=== PATIENT | female | born 1995 | race Caucasian/White ===

== ENCOUNTER → 2019-02-12 | Outpatient (CLI) | payer OTHER ==
[2019-02-12 17:08] LABS: BASO % 0.3 % (0.0-1.0); EOS # 0.1 10^3/uL (0.0-0.5); EOS % 1.3 % (0.0-3.0); HEMATOCRIT 42.1 % (36.0-47.0); HEMOGLOBIN 14.2 g/dl (12.0-15.5); LYMPH # 1.5 10^3/uL (1.5-5.0); LYMPH % 14.6 % (24.0-44.0); MEAN CORPUSCULAR HEMOGLOBIN 31.1 pg (27.0-33.0); MEAN CORPUSCULAR HGB CONC 33.7 g/dl (32.0-36.5); MEAN CORPUSCULAR VOLUME 92.1 fl (80.0-96.0); MONO # 0.7 10^3/uL (0.0-0.8); MONO % 6.9 % (0.0-5.0); NEUTROPHILS # 7.6 10^3/uL (1.5-8.5); NEUTROPHILS % 76.6 % (36.0-66.0); PLATELET COUNT, AUTOMATED 250 10^3/uL (150-450); RED BLOOD COUNT 4.57 10^6/uL (4.00-5.40)
[2019-02-12 18:23] LABS: GC DNA AMPLIFICATION NEGATIVE (NEGATIVE)
[2019-02-13 06:20] LABS: CHLAMYDIA DNA AMPLIFICATION NEGATIVE (NEGATIVE); WHITE BLOOD COUNT 9.9 10^3/uL (4.0-10.0)
[2019-02-13 10:19] LABS: HIV 1&2 SCREEN CENTAUR NEGATIVE (NEGATIVE); RUBELLA IgG QUALITATIVE IMMUNE (IMMUNE)
== END ==
LOC: M LRY 14:11
PROVIDERS: ATTEND Advanced Practice Midwife
DX: Z34.00 Encounter for supervision of normal first pregnancy, unspecified trimester (principal); Z3A.00 Weeks of gestation of pregnancy not specified

== ENCOUNTER → 2019-03-01 | Outpatient (CLI) | payer OTHER | LOC: M SMT 13:17 | PROVIDERS: ATTEND Advanced Practice Midwife | DX: Z34.81 Encounter for supervision of other normal pregnancy, first trimester (principal); Z3A.00 Weeks of gestation of pregnancy not specified ==

== ENCOUNTER → 2019-03-19 | Outpatient (CLI) | payer OTHER ==
[2019-03-19 18:01] LABS: APPEARANCE, URINE CLEAR (CLEAR); BACTERIA, URINE AUTO 1+ (NEGATIVE); BILIRUBIN, URINE AUTO NEGATIVE (NEGATIVE); BLOOD, URINE BLOOD NEGATIVE (NEGATIVE); COLOR, URINE STRAW (YELLOW); GLUCOSE, URINE (UA) AUTO NEGATIVE (NEGATIVE); KETONE, URINE AUTO NEGATIVE (NEGATIVE); LEUKOCYTE ESTERASE, URINE AUTO NEGATIVE (NEGATIVE); MUCUS, URINE SMALL (NEGATIVE); NITRITE, URINE AUTO NEGATIVE (NEGATIVE); PROTEIN, URINE AUTO NEGATIVE (NEGATIVE); RBC, URINE AUTO 0 /HPF (0-3); SPECIFIC GRAVITY URINE AUTO 1.003 (1.002-1.035); SQUAMOUS EPITHELIAL CELL UR AU 1 /HPF (0-6); UROBILINOGEN, URINE AUTO 0.2 mg/dL (0.0-2.0); WBC, URINE AUTO 2 /HPF (0-3)
== END ==
LOC: M PLALAB 13:44
PROVIDERS: ATTEND Obstetrics & Gynecology
DX: R10.2 Pelvic and perineal pain (principal)

== ENCOUNTER → 2019-03-19 | Outpatient (REF) | payer OTHER | LOC: M PLALAB 13:42 | PROVIDERS: ATTEND Obstetrics & Gynecology | DX: Z53.9 Procedure and treatment not carried out, unspecified reason (principal) ==

== ENCOUNTER → 2019-04-24 | Outpatient (CLI) | payer OTHER ==
--- NOTE | 2019-04-25 11:25 | REP ---
Clinical: Anatomical evaluation. Comparison: None . Findings: Examination demonstrates a single live intrauterine in cephalic presentation. motion is identified by technologist. Placenta is noted anterior and grade I without evidence for placenta previa or abruption. Amniotic fluid volume is normal. Cervix measures 3.5 cm in length and appears closed. No evidence for nuchal cord. Gestational age by current measurements 20.6 weeks with AKOSUA 09/07/2019 . FHR equals 144 beats per minute. BPD 4.7 cm 20.2 weeks HC 18.2 cm 20.6 weeks AC 16.7 cm 21.7 weeks FL 3.5 cm 21.0 weeks HL 3.3 cm 21.1 weeks HC/AC ratio 1.09 Estimated weight 412 grams ( 70th percentile). Anatomical assessment demonstrates normal structures including cranium, choroid plexus, cavum, cerebellum/posterior fossa, facial features, lungs, four-chamber heart/ventricular outflow tracts, diaphragm, stomach, cord insertion/three-vessel cord, kidneys/bladder, spine, and extremities. Impression: Single live intrauterine in cephalic presentation demonstrating appropriate estimated weight. Anatomical assessment is complete and normal.
--- NOTE | 2019-04-25 11:26 | REP ---
Clinical: Cholelithiasis. Technique: Real time swain scale ultrasound examination using curved array transducer. Findings: Liver and pancreas are normal in contour, size, echogenicity without focal hepatic or pancreatic lesion identified. Gallbladder demonstrates small amount of layering sludge without wall thickening or pericholecystic fluid. No biliary ductal dilatation is appreciated and the common bile duct measures 2.8 mm diameter. The right kidney is normal in reniform shape without hydronephrosis and measures 10.1 x 4.5 x 4.3 cm. Abdominal aorta is normal. Impression: Minimal layering sludge in the gallbladder.
== END ==
LOC: M WHC 10:18
PROVIDERS: ATTEND Obstetrics & Gynecology
DX: Z36.3 Encounter for antenatal screening for malformations (principal); O26.892 Other specified pregnancy related conditions, second trimester; R10.13 Epigastric pain; Z3A.20 20 weeks gestation of pregnancy

== ENCOUNTER → 2019-04-24 | Outpatient (CLI) | payer OTHER ==
[2019-04-24 17:29] LABS: ALBUMIN 3.5 GM/DL (3.2-5.2); ALT/SGPT 17 U/L (12-78); AMYLASE 59 U/L (25-115); BILIRUBIN,TOTAL 0.5 MG/DL (0.2-1.0); BLOOD UREA NITROGEN 7 MG/DL (7-18); CALCIUM LEVEL 8.8 MG/DL (8.5-10.1); CARBON DIOXIDE LEVEL 23 MEQ/L (21-32); CHLORIDE LEVEL 105 MEQ/L (98-107); CREATININE FOR GFR 0.68 MG/DL (0.55-1.30); GLOMERULAR FILTRATION RATE > 60.0 (>60); GLUCOSE, FASTING 65 MG/DL (70-100); LIPASE 125 U/L (73-393); POTASSIUM SERUM 4.1 MEQ/L (3.5-5.1); SODIUM LEVEL 138 MEQ/L (136-145); TOTAL PROTEIN 7.1 GM/DL (6.4-8.2)
[2019-04-24 17:35] LABS: HEMATOCRIT 40.4 % (36.0-47.0); HEMOGLOBIN 13.1 g/dl (12.0-15.5); MEAN CORPUSCULAR HEMOGLOBIN 31.1 pg (27.0-33.0); MEAN CORPUSCULAR HGB CONC 32.4 g/dl (32.0-36.5); PLATELET COUNT, AUTOMATED 250 10^3/uL (150-450); RED BLOOD COUNT 4.21 10^6/uL (4.00-5.40); WHITE BLOOD COUNT 10.2 10^3/uL (4.0-10.0)
== END ==
LOC: M PLALAB 12:26
PROVIDERS: ATTEND Obstetrics & Gynecology
DX: R10.13 Epigastric pain (principal)

== ENCOUNTER → 2019-06-07 | Outpatient (CLI) | payer OTHER ==
[2019-06-07 15:59] LABS: HEMATOCRIT 36.6 % (36.0-47.0); HEMOGLOBIN 12.4 g/dl (12.0-15.5); MEAN CORPUSCULAR HGB CONC 33.9 g/dl (32.0-36.5); MEAN CORPUSCULAR VOLUME 94.6 fl (80.0-96.0); PLATELET COUNT, AUTOMATED 250 10^3/uL (150-450); RED BLOOD COUNT 3.87 10^6/uL (4.00-5.40); WHITE BLOOD COUNT 9.6 10^3/uL (4.0-10.0)
== END ==
LOC: M PLALAB 09:12
PROVIDERS: ATTEND Advanced Practice Midwife
DX: R19.8 Other specified symptoms and signs involving the digestive system and abdomen (principal)
CPT/HCPCS: 36415; 82950; 85027; 86850; 86900; 86901; J2790

== ENCOUNTER → 2019-08-16 | Outpatient (REF) | payer OTHER | LOC: M SFHCWAGY 16:23 | PROVIDERS: ATTEND Advanced Practice Midwife | DX: Z34.03 Encounter for supervision of normal first pregnancy, third trimester (principal) ==

== ENCOUNTER 2019-09-05 18:28 | Inpatient (IN) | payer OTHER ==
[~2019-09-05] VITALS: Ht 175.3 cm; Wt 84.5 kg
[2019-09-05] VITALS (19 sets, daily range): BP systolic 111–141; BP diastolic 57–85
[2019-09-05] MEDS ORDERED: PRENTAB9 PO (18:40)
[2019-09-05] MEDS ORDERED: LR 1,000 ML IV SCH (19:25)
[2019-09-05] MEDS ORDERED: LACTATED RINGER'S 1000 ML IV STA (19:25)
[2019-09-05 19:48] LABS: HEMATOCRIT 36.1 % (36.0-47.0); HEMOGLOBIN 12.6 g/dl (12.0-15.5); MEAN CORPUSCULAR HEMOGLOBIN 30.6 pg (27.0-33.0); MEAN CORPUSCULAR HGB CONC 34.9 g/dl (32.0-36.5); MEAN CORPUSCULAR VOLUME 87.6 fl (80.0-96.0); PLATELET COUNT, AUTOMATED 227 10^3/uL (150-450); RED BLOOD COUNT 4.12 10^6/uL (4.00-5.40)
[2019-09-05] MEDS ORDERED: FENTANYL 2MCG/ML ROPIVACAINE 0.2% IN 0.9% NACL 100ML IVBAG As Ordered ONE (19:55)
[2019-09-05] MEDS ORDERED: EPIDURAL COMMENT XX SCH (21:00)
[2019-09-05] MEDS ORDERED: LACTATED RINGER'S 1000 ML IV PRN (21:00)
[2019-09-05] MEDS ORDERED: ONDANSETRON 4MG/2ML VIAL IV PRN (21:00)
[2019-09-05] MEDS ORDERED: diphenhydrAMINE 50MG/ML VIAL (J1200) IV PRN (21:00)
[2019-09-05] MEDS ORDERED: REFRIGERATOR IV KEYS XX PRN (21:00)
[2019-09-05] MEDS ORDERED: FENTANYL/ROPIVACAINE/NACL BAG 100 ML EPIDURAL SCH (21:00)
[2019-09-05] MEDS ORDERED: ePHEDrine SULFATE 25 MG/5 ML(5MG/ML) SYRINGE IV PRN (21:00)
[2019-09-05] MEDS ORDERED: NALOXONE INJ 0.4MG/1ML VIAL (J2310 PER 1MG) IV PRN (21:00)
[2019-09-05] MEDS ORDERED: EPIDURAL/PCA KEYS XX PRN (21:00)
[2019-09-06] VITALS (12 sets, daily range): BP systolic 107–150; BP diastolic 53–70
[2019-09-06] MEDS ORDERED: OXYTOCIN 30 UNITS IN 0.9% NaCl 500ML IV BAG (J2590) As Ordered ONE (00:27)
[2019-09-06] MEDS: LR 1,000 ML IV SCH ×2 (03:02→11:02)
[2019-09-06] MEDS ORDERED: OXYTOCIN DRIP 30 UNITS in IV 1 EA IV SCH (03:02)
[2019-09-06] MEDS ORDERED: ACETAMINOPHEN TAB 650MG DOSE (2X325MG) PO PRN (03:15)
[2019-09-06] MEDS ORDERED: ONDANSETRON 4MG/2ML VIAL IV PRN (03:15)
[2019-09-06] MEDS ORDERED: DIBUCAINE 1% OINTMENT 30GM TOP PRN (03:15)
[2019-09-06] MEDS ORDERED: DOCUSATE SODIUM 100 MG CAP PO PRN (03:15)
[2019-09-06] MEDS ORDERED: PROMETHAZINE 25 MG TAB PO PRN (03:15)
[2019-09-06] MEDS ORDERED: RHOGAM 300 MCG (1500 IU) INJ (J2790) IM SCH (03:15)
[2019-09-06] MEDS ORDERED: MEASLES,MUMPS,RUBELLA VACCINE INJ (MMR-II) (90707) SC SCH (03:15)
[2019-09-06] MEDS ORDERED: IBUPROFEN 600 MG TAB PO PRN (03:15)
[2019-09-06] MEDS: ACETAMINOPHEN 500 MG TAB PO PRN ×2 (04:40→19:44)
[2019-09-06] MEDS: PRENATAL VITAMINS CHEWABLE TABLET PO SCH (11:42)
[2019-09-06] MEDS: IBUPROFEN 800 MG TAB PO PRN (14:52)
[2019-09-07] MEDS: IBUPROFEN 800 MG TAB PO PRN ×3 (01:07→21:47)
[2019-09-07 06:00] VITALS: BP 118/73
--- NOTE | 2019-09-07 06:58 | IPNPDOC ---
Text Note Date of Service The patient was seen on 09/07/19. NOTE PP #1 Feels well. Adequate pain management. . Voiding VSS, afebrile, normotensive Breasts soft, nipples intact Fundus firm NT, down 1 FB Lochia rubra light without odor Perineum well approximated PP #1 Routine care. Anticipate D/C in am. VS,Fishbone, I+O VS, Fishbone, I+O Vital Signs Date Time Temp Pulse Resp B/P (MAP) Pulse Ox O2 Delivery O2 Flow Rate FiO2 09/07/19 06:00 98.0 64 17 118/73 (88) 99 Room Air I&O- Last 24 Hours up to 6 AM 09/07/19 05:59 Output Total 2150 ml Balance -2150 ml Rosette Gonsalves CNM September 07, 2019 06:58
[2019-09-07] MEDS: PRENATAL VITAMINS CHEWABLE TABLET PO SCH (09:08)
[2019-09-07 18:00] VITALS: BP 117/68
[2019-09-08 06:41] VITALS: BP 111/63
[2019-09-08] MEDS ORDERED: ACET-683 PO (09:22)
[2019-09-08] MEDS ORDERED: IBUP80TA PO (09:22)
[2019-09-08] MEDS: PRENATAL VITAMINS CHEWABLE TABLET PO SCH (09:36)
== END 2019-09-08 13:20 | disposition home or self-care (01) | DRG 807 ==
LOC: M LDO 18:28 → M LDI 19:04 → M OBS 09-06 04:49
PROVIDERS: ADMIT Obstetrics & Gynecology; ATTEND Obstetrics & Gynecology
PROC: 10E0XZZ Delivery of Products of Conception, External Approach (ICD-10-PCS; principal; 2019-09-06)
PROC: 0HQ9XZZ Repair Perineum Skin, External Approach (ICD-10-PCS; 2019-09-06)
DX: O70.0 First degree perineal laceration during delivery (principal); Z37.0 Single live birth; Z3A.39 39 weeks gestation of pregnancy

== ENCOUNTER → 2021-02-15 | Outpatient (REF) | payer OTHER ==
[~2021-02-15] MED LIST: ACET-683 PO; IBUP80TA PO; PRENTAB9 PO
== END ==
LOC: M SFHCWAGY 19:36
PROVIDERS: ATTEND Obstetrics & Gynecology
DX: Z12.4 Encounter for screening for malignant neoplasm of cervix (principal)
CPT/HCPCS: G0123; G0463